=== PATIENT | male | born 1965 | race Caucasian/White ===

== ENCOUNTER 2018-06-29 04:57 | Emergency (ER) | payer MEDICARE, MEDICAID ==
[~2018-06-29] VITALS: Ht 162.6 cm; Wt 63.5 kg
[2018-06-29] MEDS ORDERED: ZYDS20 MT (05:26)
[2018-06-29] MEDS ORDERED: CLON1TAB23 MT (05:29)
[2018-06-29] MEDS ORDERED: AMLO5TAB4 MT (05:30)
[2018-06-29] MEDS ORDERED: OMEP40CA34 MT (05:30)
[2018-06-29] MEDS ORDERED: TRAZ-212 MT (05:31)
[2018-06-29 11:59] VITALS: BP 107/68
== END 2018-06-29 12:01 | disposition home or self-care (01) ==
LOC: ER 04:57
DX: Z04.8 Encounter for examination and observation for other specified reasons (principal); I10 Essential (primary) hypertension
CPT/HCPCS: 99283